=== PATIENT | male | born 1990 | race Caucasian/White ===

== ENCOUNTER 2018-07-16 17:28 | Emergency (ER) | payer MEDICAID ==
[~2018-07-16] VITALS: Ht 172.7 cm; Wt 73.0 kg
[2018-07-16 18:22] VITALS: BP 114/81
== END 2018-07-16 21:20 | disposition left against medical advice (07) ==
LOC: ER 17:28
DX: Z53.21 Procedure and treatment not carried out due to patient leaving prior to being seen by health care provider (principal)

== ENCOUNTER 2018-09-27 06:43 | Emergency (ER) | payer MEDICAID ==
[~2018-09-27] VITALS: Ht 172.7 cm; Wt 75.3 kg
[2018-09-27 09:30] VITALS: BP 108/73
== END 2018-09-27 09:33 | disposition home or self-care (01) ==
LOC: ER 06:43
DX: J32.9 Chronic sinusitis, unspecified (principal); F17.200 Nicotine dependence, unspecified, uncomplicated
CPT/HCPCS: 82962; 99283

== ENCOUNTER 2020-01-25 16:45 | Emergency (ER) | payer MEDICAID ==
[~2020-01-25] VITALS: Ht 172.7 cm; Wt 73.0 kg
[2020-01-25 16:48] VITALS: BP 142/77
[2020-01-25] MEDS ORDERED: CEFTRIAXONE SODIUM 250 MG/VIAL IM ONE (20:00)
[2020-01-25] MEDS ORDERED: AZITHROMYCIN 500 MG TABLET PO ONE (20:00)
[2020-01-25] MEDS ORDERED: LIDOCAINE HCL 1% 20ML VIAL (Pyxis) INJ INFIL ONE (20:00)
[2020-01-25 20:09] LABS: CLARITY URINE CLEAR (CLEAR); COLOR URINE YELLOW (YELLOW); KETONES URINE NEGATIVE (NEGATIVE); LEUKOCYTE ESTERASE URINE NEGATIVE (NEGATIVE); NITRITE URINE NEGATIVE (NEGATIVE); OCCULT BLOOD URINE NEGATIVE (NEGATIVE); PROTEIN URINE NEGATIVE (NEGATIVE); SPECIFIC GRAVITY URINE 1.012 (1.005-1.030); UROBILINOGEN URINE 0.2 E.U./dL (0.2-1.0)
== END 2020-01-25 20:23 | disposition home or self-care (01) ==
LOC: ER 16:45
DX: A64 Unspecified sexually transmitted disease (principal); Z98.890 Other specified postprocedural states
CPT/HCPCS: 81003; 96372; 99283; J0696; J3490

== ENCOUNTER 2022-08-06 17:24 | Emergency (ER) | payer MEDICAID ==
[~2022-08-06] VITALS: Ht 167.6 cm; Wt 75.0 kg
[2022-08-06 17:31] VITALS: BP 126/64
== END 2022-08-06 21:10 | disposition left against medical advice (07) ==
LOC: ER 17:24
DX: Z53.21 Procedure and treatment not carried out due to patient leaving prior to being seen by health care provider (principal)

== ENCOUNTER 2022-10-14 17:14 | Emergency (ER) | payer MEDICAID, OTHER ==
[~2022-10-14] VITALS: Ht 172.7 cm; Wt 66.0 kg
[2022-10-14 17:24] VITALS: BP 121/68
[2022-10-14] MEDS ORDERED: FLUORESCEIN SODIUM 1MG/STRIP BOTHEYE ONE (18:00)
[2022-10-14] MEDS ORDERED: TETRACAINE 0.5% OPHTH DROPS 4ML BOTHEYE ONE (18:00)
[2022-10-14] MEDS ORDERED: BACI3.5O5 LEFTEYE (19:45)
== END 2022-10-14 19:56 | disposition home or self-care (01) ==
LOC: ER 17:14
DX: H15.002 Unspecified scleritis, left eye (principal); H10.9 Unspecified conjunctivitis; H11.32 Conjunctival hemorrhage, left eye
CPT/HCPCS: 99283

== ENCOUNTER 2022-11-21 16:19 | Emergency (ER) | payer OTHER ==
[~2022-11-21] VITALS: Ht 172.7 cm; Wt 64.0 kg
[~2022-11-21 16:19] MED LIST: BACI3.5O5 LEFTEYE
[2022-11-21 17:09] LABS: CLARITY URINE CLEAR (CLEAR); COLOR URINE YELLOW (YELLOW); KETONES URINE TRACE (NEGATIVE); LEUKOCYTE ESTERASE URINE NEGATIVE (NEGATIVE); NITRITE URINE NEGATIVE (NEGATIVE); OCCULT BLOOD URINE NEGATIVE (NEGATIVE); PH URINE 6.5 (4.5-8.0); PROTEIN URINE NEGATIVE (NEGATIVE); SPECIFIC GRAVITY URINE 1.028 (1.005-1.030)
[2022-11-21 17:15] VITALS: BP 114/67
== END 2022-11-21 17:18 | disposition home or self-care (01) ==
LOC: ER 16:19
DX: K12.0 Recurrent oral aphthae (principal)
CPT/HCPCS: 81003; 99283